=== PATIENT | female | born 2000 | race Two or more races ===

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

== ENCOUNTER 2018-07-22 20:11 | Emergency (ER) | payer SELFPAY ==
[~2018-07-22] VITALS: Ht 157.5 cm; Wt 65.8 kg
[2018-07-23] MEDS ORDERED: IBUPROFEN 800 MG TAB PO ONE
[2018-07-23] MEDS ORDERED: ACETAMINOPHEN 500 MG TAB PO ONE
[2018-07-23 00:02] VITALS: BP 115/74
== END 2018-07-23 00:06 | disposition home or self-care (01) ==
LOC: ER 20:11
DX: S53.401A Unspecified sprain of right elbow, initial encounter (principal); V98.8XXA Other specified transport accidents, initial encounter; Y93.I9 Activity, other involving external motion; Y92.828 Other wilderness area as the place of occurrence of the external cause; Y99.8 Other external cause status
CPT/HCPCS: 73090; 81025

== ENCOUNTER 2019-10-21 20:11 | Emergency (ER) | payer MEDICAID ==
[~2019-10-21] VITALS: Ht 157.5 cm; Wt 59.0 kg
[2019-10-21 20:41] VITALS: BP 121/72
== END 2019-10-22 00:19 | disposition home or self-care (01) ==
LOC: ER 20:11
DX: U07.1 COVID-19 (principal)
CPT/HCPCS: 71045; 99284; U0003